=== PATIENT | female | born 1940 | race Caucasian/White ===

== ENCOUNTER 2025-08-25 12:22 | Inpatient (IN) | payer MEDICARE, SELFPAY ==
[~2025-08-25] VITALS: Ht 157.5 cm; Wt 65.9 kg
[2025-08-25 13:03] LABS: BASO # 0.0 10^3/uL (0.0-0.2); BASO % 0.2 % (0.0-1.0); EOS # 0.2 10^3/uL (0.0-0.5); EOS % 1.3 % (0.0-3.0); LYMPH # 1.1 10^3/uL (1.5-5.0); LYMPH % 8.6 % (24.0-44.0); MONO # 0.9 10^3/uL (0.0-0.8); MONO % 7.2 % (2.0-8.0); NEUTROPHILS # 10.1 10^3/uL (1.5-8.5); NEUTROPHILS % 82.1 % (36.0-66.0); PLATELET COUNT, AUTOMATED 208 10^3/uL (150-450)
[2025-08-25 13:18] LABS: ALT/SGPT 18.0 U/L (7.0-40); AST/SGOT 28.0 U/L (<34); CALCIUM LEVEL 10.1 MG/DL (8.3-10.6); CARBON DIOXIDE LEVEL 37.0 MMOL/L (20-31); CHLORIDE LEVEL 97.0 MMOL/L (98-107); CREATININE FOR GFR 1.03 MG/DL (0.55-1.30); GLOMERULAR FILTRATION RATE 53.0 (>32); POTASSIUM SERUM 3.7 MMOL/L (3.5-5.1); SODIUM LEVEL 146.0 MMOL/L (136-145)
[2025-08-25 13:52] LABS: KETONE, URINE AUTO RFX NEGATIVE (NEGATIVE); LEUKOCYTE ESTERASE UR AUTO RFX NEGATIVE (NEGATIVE); NITRITE, URINE AUTO RFX NEGATIVE (NEGATIVE); RBC, URINE AUTO RFX 0 /HPF (0-3); SQUAM EPITHELIAL CELL UR AURFX 0 /HPF (0-6); WBC, URINE AUTO RFX 1 /HPF (0-3)
[2025-08-25 14:00] LABS: MAGNESIUM LEVEL 2.2 MG/DL (1.8-2.4)
[2025-08-25 14:02] LABS: FREE T4 1.22 NG/DL (0.89-1.76)
[2025-08-25] MEDS: FUROSEMIDE 20 MG/2 ML VIAL IV ONE (14:45)
[2025-08-25] MEDS ORDERED: TRAZ-186 PO (14:49)
[2025-08-25] MEDS ORDERED: TRAM50TA2 PO (14:49)
[2025-08-25] MEDS ORDERED: MELA3TAB30 PO (14:49)
[2025-08-25] MEDS ORDERED: METO25TA4 PO (14:49)
[2025-08-25] MEDS ORDERED: TORS20TA2 PO (14:49)
[2025-08-25] MEDS ORDERED: HOME MED LIST COMPLETE! XX SCH (14:50)
[2025-08-25] MEDS ORDERED: MAGN400T33 PO (14:50)
[2025-08-25] MEDS ORDERED: traZODone 50 MG TAB PO PRN (18:10)
[2025-08-25] MEDS: METOPROLOL TART 25 MG TABLET PO SCH (19:58)
[2025-08-25] MEDS: AZITHROMYCIN 250 MG TABLET PO ONE (19:58)
[2025-08-25] MEDS: cefTRIAXone SOD 1 GM in DEXTROSE 5% (D5W) ADV/MINI-BAG 50 ML IV SCH (20:28)
[2025-08-25] MEDS: ENOXAPARIN 80 MG/0.8 ML SYRINGE (J1650 PER 10MG) SC SCH (21:00)
[2025-08-26] VITALS (12 sets, daily range): BP systolic 132–153; BP diastolic 60–69; TEMP 97.2–97.8; O2SAT 93–100
[2025-08-26 05:53] LABS: CALCIUM LEVEL 9.2 MG/DL (8.3-10.6); CARBON DIOXIDE LEVEL > 40.0 MMOL/L (20-31); CHLORIDE LEVEL 95 MMOL/L (98-107); CREATININE FOR GFR 1.00 MG/DL (0.55-1.30); GLOMERULAR FILTRATION RATE 54.9 (>32); POTASSIUM SERUM 3.2 MMOL/L (3.5-5.1); SODIUM LEVEL 146 MMOL/L (136-145)
[2025-08-26] MEDS: FUROSEMIDE 40 MG/4 ML VIAL IV SCH (09:01)
[2025-08-26] MEDS: POTASSIUM CHLORIDE 10MEQ SR TABLET PO ONE ×2 (12:50→17:01)
[2025-08-26] MEDS: traMADol 50 MG TAB PO PRN (20:51)
[2025-08-27] VITALS (7 sets, daily range): BP systolic 126–143; BP diastolic 56–63; TEMP 97–97.2; O2SAT 94–100
[2025-08-27 05:32] LABS: PLATELET COUNT, AUTOMATED 177 10^3/uL (150-450)
[2025-08-27 05:55] LABS: CALCIUM LEVEL 8.5 MG/DL (8.3-10.6); CARBON DIOXIDE LEVEL 39.0 MMOL/L (20-31); CHLORIDE LEVEL 98.0 MMOL/L (98-107); CREATININE FOR GFR 0.87 MG/DL (0.55-1.30); GLOMERULAR FILTRATION RATE 64.8 (>32); POTASSIUM SERUM 3.6 MMOL/L (3.5-5.1); SODIUM LEVEL 147.0 MMOL/L (136-145)
[2025-08-27] MEDS: POTASSIUM CHLORIDE 10MEQ SR TABLET PO ONE (06:36)
[2025-08-27] MEDS: MIRALAX *UNIT DOSE* 17 GM PACKET PO PRN (08:30)
[2025-08-27] MEDS: ACETAMINOPHEN 325 MG TAB PO PRN (10:36)
[2025-08-28 03:08] VITALS: BP 151/83; TEMP 97.1; O2SAT 99
[2025-08-28 06:08] LABS: PLATELET COUNT, AUTOMATED 193 10^3/uL (150-450)
[2025-08-28 06:37] LABS: CALCIUM LEVEL 8.8 MG/DL (8.3-10.6); CARBON DIOXIDE LEVEL 39.0 MMOL/L (20-31); CHLORIDE LEVEL 98.0 MMOL/L (98-107); CREATININE FOR GFR 0.89 MG/DL (0.55-1.30); GLOMERULAR FILTRATION RATE 63.1 (>32); POTASSIUM SERUM 3.8 MMOL/L (3.5-5.1); SODIUM LEVEL 144.0 MMOL/L (136-145)
[2025-08-28 07:18] VITALS: BP 134/62; TEMP 97.7; O2SAT 99
[2025-08-28 16:00] VITALS: BP 146/82; TEMP 97.4; O2SAT 96
[2025-08-28 19:53] VITALS: BP 133/64; TEMP 98.1; O2SAT 95
[2025-08-29 00:24] VITALS: BP 161/64; TEMP 98.1; O2SAT 92
[2025-08-29 04:02] VITALS: BP 159/64; TEMP 97.4; O2SAT 92
[2025-08-29 07:49] VITALS: BP_SYST 117; BP_SYST 150; BP_DIAS 55; BP_DIAS 70; TEMP 98.1; O2SAT 93; O2SAT 97
[2025-08-29] MEDS: APIXABAN 5 MG TAB PO SCH (07:59)
[2025-08-29 12:00] VITALS: BP 108/53; TEMP 97.1; O2SAT 96
[2025-08-29 20:00] VITALS: BP 147/62; TEMP 97.7; O2SAT 94
[2025-08-30 07:51] VITALS: BP 152/56; TEMP 97.3; O2SAT 95
[2025-08-30] MEDS ORDERED: PILL CUTTER 1 EACH XX PRN (12:25)
[2025-08-30] MEDS: DICLOFENAC EPOLAMINE 1.3% PATCH TOP SCH (12:42)
[2025-08-30 19:33] VITALS: BP 155/70; TEMP 97.6; O2SAT 95
[2025-08-30] MEDS: traMADol 50 MG TAB PO SCH (21:05)
[2025-08-31 03:17] VITALS: BP 147/67; TEMP 98.3; O2SAT 93
[2025-08-31 05:55] LABS: PLATELET COUNT, AUTOMATED 190 10^3/uL (150-450)
[2025-08-31 07:53] VITALS: BP 148/65; TEMP 98; O2SAT 98
[2025-08-31 07:59] VITALS: BP 164/78; TEMP 97.6; O2SAT 98
[2025-08-31 13:59] VITALS: BP 144/86; TEMP 97.5; O2SAT 97
[2025-09-01 03:49] VITALS: BP 110/46; TEMP 97.7; O2SAT 95
[2025-09-02 04:12] VITALS: BP 126/55; TEMP 97.7; O2SAT 93
[2025-09-02 08:06] VITALS: BP 148/66
[2025-09-02] MEDS ORDERED: CARV6.25 PO (15:09)
[2025-09-02] MEDS ORDERED: ELIQ5TAB PO (15:09)
== END 2025-09-02 16:21 | DRG 293 ==
LOC: M ED 12:22 → M ED INP 18:07 → M PCU 08-26 01:32 → M MSPAV 08-31 13:54
PROVIDERS: ADMIT Student in an Organized Health Care Education/Training Program; ATTEND Student in an Organized Health Care Education/Training Program
DX: I50.23 Acute on chronic systolic (congestive) heart failure (principal); I48.0 Paroxysmal atrial fibrillation; F41.9 Anxiety disorder, unspecified; G47.00 Insomnia, unspecified; G89.29 Other chronic pain; M54.9 Dorsalgia, unspecified; R53.1 Weakness; Z87.891 Personal history of nicotine dependence; Z79.899 Other long term (current) drug therapy; Z66 Do not resuscitate